=== PATIENT | male | born 1985 | race Caucasian/White ===

== ENCOUNTER 2016-05-30 19:49 | Emergency (ER) | payer OTHER ==
[~2016-05-30] VITALS: Ht 185.4 cm; Wt 127.0 kg
[2016-05-30] MEDS ORDERED: AMOX500C2 PO (20:00)
[2016-05-30] MEDS ORDERED: LISI1TAB6 PO (20:00)
[2016-05-30] MEDS ORDERED: NS IV 1000 ML 1,000 ML IV ONE (20:02)
--- NOTE | 2016-05-30 20:12 | ED General ---
General Chief Complaint: Cough/Cold/Flu Symptoms Stated Complaint: COUGH;HEAD AND NECK PAIN Nursing Triage Note: PT HAS BEEN TREATED FOR UPPER RESP INFECTION ET INNER EAR INFECTION WITH COUGH SYRUP ET ABX THROUGH URGENT CARE. REPORTS HE BEGAN HAVING SHARP HEAD PAIN WITH COUGH ABOUT 1 HR MALT [employer]. Nursing Sepsis Screen: No Definite Risk Source of Information: Patient, Family Exam Limitations: No Limitations History of Present Illness Time Seen by Provider: 19:53 Initial Comments This 31-year-old gentleman presents to emergency room with complaints of cough and pain in the left ear and the left neck with cough. The pain started about 10 minutes ago. The cough has been persistent for about a week. At onset of illness he presented to Urgent Care where he was prescribed an antibiotic and cough medication. He reports being diagnosed with right otitis media as well. He has one day left on the antibiotic and has finished the cough medication. He denies any fever. He is not a smoker. He is noted to be tachycardic and hypertensive on arrival. reports she gave him ibuprofen 200 mg prior to departing home. Allergies and Home Medications Allergies Coded Allergies: No Known Drug Allergies (Unverified , 05/30/16) Home Medications Amoxicillin 500 Mg Capsule #30 500 MG PO TID (Reported) Lisinopril/Hydrochlorothiazide 1 Each Tablet #30 1 TAB PO DAILY (Reported) Constitutional: no symptoms reported EENTM: see HPI Respiratory: see HPI Cardiovascular: see HPI Gastrointestinal: no symptoms reported Genitourinary: no symptoms reported Musculoskeletal: no symptoms reported Skin: no symptoms reported Psychiatric/Neurological: No Symptoms Reported Hematologic/Lymphatic: No Symptoms Reported Past Hsjosbu-Hvzwqy-Iitepe Hx Patient Social History Alcohol Use: Rarely Uses Recreational Drug Use: No Smoking Status: Never a Smoker Recent Foreign Travel: No Contact w/Someone Who Travel: No Recent Infectious Disease Expo: No Recent Hopitalizations: No Physical Abuse Screen: No Sexual Abuse: No Seasonal Allergies Seasonal Allergies: No Surgeries HX Surgeries: Yes (GANGLION CYST REMOVAL) Surgeries: Orthopedic Respiratory Hx Respiratory Disorders: No Cardiovascular Hx Cardiac Disorders: Yes Cardiac Disorders: Hypertension Neurological Hx Neurological Disorders: No Genitourinary Hx Genitourinary Disorders: No Gastrointestinal Hx Gastrointestinal Disorders: No Musculoskeletal Hx Musculoskeletal Disorders: No Endocrine Hx Endocrine Disorders: No HEENT HX ENT Disorders: No Cancer Hx Cancer: No Psychosocial Hx Psychiatric Problems: No Family Medical History Significant Family History: Cancer (colon cancer) Physical Exam Vital Signs Vital Sign - Last 12Hours 05/30/16 19:55 Temp 98.6 Pulse 106 Resp 18 O2 Delivery Room Air Capillary Refill : Less Than 3 Seconds General Appearance: No Apparent Distress WD/WN Other (coughing intermittently) HEENT: PERRL/EOMI TMs Normal Normal ENT Inspection Other (mild erythema and cobblestoning in the posterior pharynx. Mild tenderness in the temporal region and behind the left ear. No lymphadenopathy noted. 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 Norm as Tested Skin: Normal Color Warm/Dry Progress/Results/Core Measures Results/Orders Lab Results Laboratory Tests Test 05/30/16 20:10 Range/Units Anion Gap 12 5-14 MMOL/L BUN/Creatinine Ratio 18 Basophils # (Auto) 0.0 0.0-0.1 10^3/uL Basophils (%) (Auto) 0 0-10 % Blood Urea Nitrogen 17 7-18 MG/DL C-Reactive Protein High Sensitivity 1.15 H 0.00-0.50 MG/DL Calcium Level 9.5 8.5-10.1 MG/DL Carbon Dioxide Level 25 21-32 MMOL/L Chloride Level 102 98-107 MMOL/L Creatinine 0.93 0.60-1.30 MG/DL Eosinophils # (Auto) 0.3 0.0-0.3 10^3/uL Eosinophils (%) (Auto) 3 0-10 % Estimat Glomerular Filtration Rate > 60 Glucose Level 106 H 70-105 MG/DL Hematocrit 47 40-54 % Hemoglobin 16.3 13.3-17.7 G/DL Lymphocytes # (Auto) 2.0 1.0-4.0 X 10^3 Lymphocytes (%) (Auto) 20 12-44 % Mean Corpuscular Hemoglobin 30 25-34 PG Mean Corpuscular Hemoglobin Concent 35 32-36 G/DL Mean Corpuscular Volume 85 80-99 FL Mean Platelet Volume 10.5 H 7.4-10.4 FL Monocytes # (Auto) 1.1 H 0.0-1.0 X 10^3 Monocytes (%) (Auto) 11 0-12 % Neutrophils # (Auto) 6.7 1.8-7.8 X 10^3 Neutrophils (%) (Auto) 66 42-75 % Platelet Count 198 130-400 10^3/uL Potassium Level 3.6 3.6-5.0 MMOL/L Red Blood Count 5.53 4.35-5.85 10^6/uL Red Cell Distribution Width 13.4 10.0-14.5 % Sodium Level 139 135-145 MMOL/L White Blood Count 10.1 4.3-11.0 10^3/uL My Orders Orders-MISAEL LAKE MD Basic Metabolic Panel (05/30/16 20:02) Cbc With Automated Diff (05/30/16 20:02) Saline Lock/Iv-Start (05/30/16 20:02) Ns Iv 1000 Ml (Sodium Chloride 0.9%) (05/30/16 20:02) Hs C Reactive Protein (05/30/16 20:02) Chest Pa/Lat (2 View) (05/30/16 20:02) Ketorolac Injection (Toradol Injection) (05/30/16 20:15) Prednisone Tablet (Deltasone Tablet) (05/30/16 21:00) Benzonatate Capsule (Tessalon Perles) (05/30/16 21:00) Albuterol/Ipra Inhalation Soln (Duoneb I (05/30/16 21:00) Rx-Albuterol Inhaler (Rx-Ventolin Hfa) (05/30/16 20:56) Rt Request For Service (05/30/16 20:56) Medications Given in ED Current Medications Medications Dose Ordered Sig/Julieta Route Start Time Stop Time Status Last Admin Dose Admin Ketorolac Tromethamine 30 mg ONCE ONCE IVP 05/30/16 20:15 05/30/16 20:16 DC 05/30/16 20:16 30 MG Sodium Chloride 1,000 ml @ 0 mls/hr Q0M ONCE IV 05/30/16 20:02 05/30/16 20:03 DC 05/30/16 20:16 1,000 MLS/HR Vital Signs/I&O Vital Sign - Last 12Hours 05/30/16 05/30/16 19:55 20:13 Temp 98.6 Pulse 106 Resp 18 B/P O2 Delivery Room Air Room Air Progress Note #1: Time: 20:11 Progress Note Patient's tachycardia without fever was somewhat concerning. Labs were drawn and chest x-ray ordered. IV fluids will be administered. Progress Note #2: Time: 20:49 Progress Note Patient's heart rate is improving with IV fluids. There is no leukocytosis, elevation in CRP, or fever. This suggests no significant bacterial infection. DuoNeb treatment will be administered for cough. Tessalon Perles and prednisone will also be administered. Diagnostic Imaging Diagonstic Imaging: Xray Plain Films/CT/US/NM/MRI: chest Comments Two-view chest x-ray viewed by me and report reviewed. See report below: NAME: MARK LIANG [facility] REC#: [id number] PT STATUS: REG ER : 1985 PHYSICIAN: MISAEL LAKE MD ADMIT DATE: 05/30/16/ER Signed Date of Exam:05/30/16 CHEST PA/LAT (2 VIEW) INDICATION: Cough COMPARISON: None FINDINGS: Two views of the chest are obtained. Heart size is normal. The pulmonary vessels appear unremarkable. There is no pneumothorax, mediastinal widening or pleural fluid demonstrated. The lungs are clear. The osseous structures appear unremarkable. IMPRESSION: Negative chest Dictated by: Dictated on workstation # [id number] Dict: 05/30/162015 Trans: 05/30/162025 SAMIR [id number] Interpreted by: LESA LAZARO DO Electronically signed by: LESA LAZARO DO 05/30/162028 Departure Impression Impression: Primary Impression: Bronchitis Additional Impression: Acute headache Qualified Code: R51 - Headache Disposition: 01 HOME, SELF-CARE Condition: Improved Departure-Patient Inst. Decision time for Depature: 20:45 Referrals: NO,LOCAL PHYSICIAN (PCP) Primary Care Physician Patient Instructions: Acute Bronchitis in Adults Add. Discharge Instructions: Complete your antibiotics as previously prescribed. Use the steroids (prednisone) as prescribed to help reduce wheezing and shortness of air. You may use Tessalon Perles as prescribed for cough suppression or an over-the- counter product containing dextromethorphan (DM). Use your inhaler as prescribed 1-4 puffs every 4 hours as needed for cough, wheezing, or shortness of air. Follow up with your primary care provider or return to the emergency room if not improving. You may take ibuprofen up to 800 mg every 8 hours as needed for pain. Add Tylenol up to 1000 mg every 6 hours as needed for additional pain relief. All discharge instructions reviewed with patient and/or family. Voiced understanding. Scripts Benzonatate 200 Mg [id number] Mg PO TID #15 CAP Prov:MISAEL LAKE MD 05/30/16 Prednisone 20 Mg Tab20 Mg PO DAILY #3 TAB Prov:MISAEL LAKE MD 05/30/16 MISAEL LAKE MD May 30, 2016 20:12
[2016-05-30] MEDS ORDERED: KETOROLAC 30 MG/ML VIAL IVP ONE (20:15)
[2016-05-30 20:20] LABS: BASOPHILS % (AUTO) 0 % (0-10); EOSINOPHILS # (AUTO) 0.3 10^3/uL (0.0-0.3); EOSINOPHILS % (AUTO) 3 % (0-10); LYMPHOCYTES % (AUTO) 20 % (12-44); MEAN CORPUSCULAR HEMOGLOBIN 30 PG (25-34); MEAN CORPUSCULAR HGB CONC 35 G/DL (32-36); MEAN CORPUSCULAR VOLUME 85 FL (80-99); MEAN PLATELET VOLUME 10.5 FL (7.4-10.4); MONOCYTES # (AUTO) 1.1 X 10^3 (0.0-1.0); MONOCYTES % (AUTO) 11 % (0-12); NEUTROPHILS # (AUTO) 6.7 X 10^3 (1.8-7.8); NEUTROPHILS % (AUTO) 66 % (42-75); PLATELET COUNT 198 10^3/uL (130-400); RED BLOOD COUNT 5.53 10^6/uL (4.35-5.85); RED CELL DISTRIBUTION WIDTH 13.4 % (10.0-14.5); WHITE BLOOD COUNT 10.1 10^3/uL (4.3-11.0)
--- NOTE | 2016-05-30 20:25 | Diagnostic Imaging Report ---
INDICATION: Cough COMPARISON: None FINDINGS: Two views of the chest are obtained. Heart size is normal. The pulmonary vessels appear unremarkable. There is no pneumothorax, mediastinal widening or pleural fluid demonstrated. The lungs are clear. The osseous structures appear unremarkable. IMPRESSION: Negative chest Dictated by: Dictated on workstation # [id number]
[2016-05-30 20:42] LABS: ANION GAP 12 MMOL/L (5-14); BLOOD UREA NITROGEN 17 MG/DL (7-18); BUN/CREATININE RATIO 18; CALCIUM 9.5 MG/DL (8.5-10.1); CARBON DIOXIDE 25 MMOL/L (21-32); CHLORIDE 102 MMOL/L (98-107); CREATININE SERUM 0.93 MG/DL (0.60-1.30); GFR ESTIMATED > 60; GLUCOSE 106 MG/DL (70-105); POTASSIUM 3.6 MMOL/L (3.6-5.0); SODIUM 139 MMOL/L (135-145); hs C REACTIVE PROTEIN 1.15 MG/DL (0.00-0.50)
[2016-05-30] MEDS ORDERED: RX-ALBUTEROL INHALER (VENTOLIN HFA) 18 GM IH STA (20:56)
[2016-05-30] MEDS ORDERED: predniSONE 20 MG TAB PO ONE (21:00)
[2016-05-30] MEDS ORDERED: RT-ALBUTEROL/IPRATROPIUM 3 ML (DUONEB) VIAL INH ONE (21:00)
[2016-05-30] MEDS ORDERED: BENZONATATE 100 MG (TESSALON) CAPSULE PO ONE (21:00)
[2016-05-30] MEDS ORDERED: BENZ200C51 PO (21:08)
[2016-05-30] MEDS ORDERED: PRD20T PO (21:08)
[2016-05-30 21:19] VITALS: BP 132/83
== END 2016-05-30 21:19 | disposition home or self-care (01) ==
LOC: ER 19:52
DX: J20.9 Acute bronchitis, unspecified (principal); R51 Headache; R00.0 Tachycardia, unspecified; H92.02 Otalgia, left ear
CPT/HCPCS: 36415; 71020; 80048; 85025; 86141; 94640; 96361; 96374

== ENCOUNTER 2017-11-28 21:46 | Emergency (ER) | payer OTHER ==
[~2017-11-28] VITALS: Ht 185.4 cm; Wt 127.0 kg
[~2017-11-28 21:46] MED LIST: AMOX500C2 PO; BENZ200C51 PO; LISI1TAB6 PO; PRD20T PO
--- NOTE | 2017-11-28 21:56 | ED Integumentary General ---
General Stated Complaint: WASP STING, SWELLING, DIZZY, REDNESS, HOT Source: patient Exam Limitations: no limitations History of Present Illness Date Seen by Provider: Nov 28, 2017 Time Seen by Provider: 21:52 Initial Comments tto ER with a wasp sting yesterday evening 24 hours ago. He did not see the wasp sting him, he had a sudden burning to the right anterior upper chest wall and then saw wasp flying around. He suspects it was that wasp stung him.He applied some bag balm with some minor relief last night. Starting at 9:30 this evening, 20 minutes ago,he developed dizziness and increased pain at the sting site. No nausea no vomiting, no abdominal cramping. No rational hives no shortness of breath or trouble breathing. hat his dizziness comes about with movement and resolves with holding still. Timing/Duration: yesterday, getting worse Severity: moderate Allergies and Home Medications Allergies Coded Allergies: No Known Drug Allergies (Unverified , 05/30/16) Home Medications Amoxicillin 500 Mg Capsule, 500 MG PO TID, (Reported) Benzonatate 200 Mg Capsule, 200 MG PO TID Prescribed by: MISAEL BERRY on 05/30/162107 Lisinopril/Hydrochlorothiazide 1 Each Tablet, 1 TAB PO DAILY, (Reported) Prednisone 20 Mg Tab, 20 MG PO DAILY Prescribed by: MISAEL BERRY on 05/30/162107 Patient Home Medication List Home Medication List Reviewed: Yes Constitutional: see HPI EENTM: see HPI Respiratory: no symptoms reported Cardiovascular: no symptoms reported Genitourinary: no symptoms reported Musculoskeletal: no symptoms reported Skin: see HPI Psychiatric/Neurological: No Symptoms Reported Endocrine: No Symptoms Reported Hematologic/Lymphatic: No Symptoms Reported Past Yviyyvl-Epnxvm-Edboqf Hx Patient Social History Recent Foreign Travel: No Contact w/Someone Who Travel: No Recent Hopitalizations: No Seasonal Allergies Seasonal Allergies: No Past Medical History Orthopedic Hypertension Family Medical History Cancer Physical Exam Vital Signs Vital Signs - First Documented 11/28/17 21:53 Temp 98.7 Pulse 99 Resp 14 B/P (MAP) 160/104 (122) O2 Delivery Room Air Capillary Refill : General Appearance: WD/WN, no apparent distress, other (e says he's been indoors all day so other pathology such as heat exhaustion would be unlikely) HEENT: PERRL/EOMI, normal ENT inspection, TMs normal, pharynx normal Neck: non-tender, full range of motion Cardiovascular: regular rate, rhythm, no murmur Respiratory: normal breath sounds, no respiratory distress, no accessory muscle use Gastrointestinal: normal bowel sounds, non tender, soft Neurologic/Psychiatric: alert, normal mood/affect, oriented x 3 Skin: normal color, warm/dry, other (here is a single 4 mm vesiclefilled with serous fluidatop an erythematous base to the right anterior upperlateral chest wall. There is about 1-2 cm of surrounding erythema.) Skin Problem Character: erythema Progress/Results/Core Measures Results/Orders Lab Results Laboratory Tests Test 11/28/17 22:35 Range/Units My Orders Orders - RAND GONZALEZ APRN Diphenhydramine Tablet (Benadryl Tablet) (11/28/17 22:00) Cbc With Automated Diff (11/28/17 22:33) Basic Metabolic Panel (11/28/17 22:33) Meclizine Tablet (Antivert Tablet) (11/28/17 22:45) Medications Given in ED Current Medications Medications Dose Ordered Sig/Julieta Route Start Time Stop Time Status Last Admin Dose Admin Diphenhydramine HCl 25 mg ONCE ONCE PO 11/28/17 22:00 11/28/17 22:01 DC 11/28/17 22:06 25 MG Vital Signs/I&O 11/28/17 21:53 Temp 98.7 Pulse 99 Resp 14 B/P (MAP) 160/104 (122) O2 Delivery Room Air Departure Impression Primary Impression: Insect sting Additional Impression: Vertigo Disposition: 01 HOME, SELF-CARE Condition: Stable Departure-Patient Inst. Decision time for Depature: 21:55 Referrals: MAVIS HASSAN MD (PCP/Family) Primary Care Physician Patient Instructions: Insect Bites and Stings (DC) Add. Discharge Instructions: 1. Follow-up with your doctor next week for recheck. Return to ER for any trouble breathing, hives, worsening symptoms. Otherwise you can apply topical steroids such as cortisone 10 which you can purchase [id number] twice daily for the next 2-3 days. You can also use Benadryl one tablet every 4-6 hours as needed for any itching or other concerns. Cool compresses to this area may also help Scripts Meclizine HCl (Meclizine HCl) 25 Mg Tablet 25 MG PO Q8H PRN for DIZZINESS, #10 TAB Prov: RAND GONZALEZ APRN 11/28/17 RAND GONZALEZ APRN Nov 28, 2017 21:56
[2017-11-28] MEDS ORDERED: diphenhydrAMINE 25 MG TAB (BENADRYL) PO ONE (22:00)
[2017-11-28 22:41] LABS: BASOPHILS % (AUTO) 0 % (0-10); EOSINOPHILS # (AUTO) 0.1 10^3/uL (0.0-0.3); EOSINOPHILS % (AUTO) 2 % (0-10); HEMATOCRIT 45 % (40-54); HEMOGLOBIN 15.8 G/DL (13.3-17.7); LYMPHOCYTES # (AUTO) 2.9 X 10^3 (1.0-4.0); LYMPHOCYTES % (AUTO) 36 % (12-44); MEAN CORPUSCULAR HEMOGLOBIN 30 PG (25-34); MEAN CORPUSCULAR HGB CONC 35 G/DL (32-36); MEAN CORPUSCULAR VOLUME 84 FL (80-99); MEAN PLATELET VOLUME 10.5 FL (7.4-10.4); MONOCYTES # (AUTO) 0.7 X 10^3 (0.0-1.0); MONOCYTES % (AUTO) 9 % (0-12); NEUTROPHILS # (AUTO) 4.3 X 10^3 (1.8-7.8); NEUTROPHILS % (AUTO) 54 % (42-75); PLATELET COUNT 211 10^3/uL (130-400); RED BLOOD COUNT 5.35 10^6/uL (4.35-5.85); RED CELL DISTRIBUTION WIDTH 13.8 % (10.0-14.5)
[2017-11-28] MEDS ORDERED: MECL-106 PO (22:42)
[2017-11-28] MEDS ORDERED: MECLIZINE 25 MG (ANTIVERT) TAB PO ONE (22:45)
[2017-11-28 23:01] LABS: BUN/CREATININE RATIO 21; CALCIUM 9.1 MG/DL (8.5-10.1); CARBON DIOXIDE 20 MMOL/L (21-32); CHLORIDE 111 MMOL/L (98-107); CREATININE SERUM 0.81 MG/DL (0.60-1.30); GFR ESTIMATED > 60; GLUCOSE 114 MG/DL (70-105); POTASSIUM 3.9 MMOL/L (3.6-5.0); SODIUM 140 MMOL/L (135-145)
[2017-11-28 23:07] VITALS: BP 142/96
== END 2017-11-28 23:09 | disposition home or self-care (01) ==
LOC: EDUNIT# 21:46 → ER 21:48
DX: S20.361A Insect bite (nonvenomous) of right front wall of thorax, initial encounter (principal); R42 Dizziness and giddiness; I10 Essential (primary) hypertension; Z98.890 Other specified postprocedural states; Z79.52 Long term (current) use of systemic steroids; W57.XXXA Bitten or stung by nonvenomous insect and other nonvenomous arthropods, initial encounter
CPT/HCPCS: 36415; 80048; 85025; 99283

== ENCOUNTER → 2020-11-14 | Outpatient (CLI) | payer OTHER ==
[~2020-11-14] MED LIST changes: +LISI1TAB29 PO; -LISI1TAB6 PO; +MECL-149 PO
[2020-11-14 16:16] LABS: ALBUMIN 4.5 GM/DL (3.2-4.5)
[2020-11-14 16:17] LABS: CHLORIDE 106 MMOL/L (98-107); POTASSIUM 3.4 MMOL/L (3.6-5.0); SODIUM 142 MMOL/L (135-145)
[2020-11-14 16:18] LABS: CALCIUM 9.1 MG/DL (8.5-10.1)
[2020-11-14 16:19] LABS: GLUCOSE 90 MG/DL (70-105); TOTAL PROTEIN 8.1 GM/DL (6.4-8.2)
[2020-11-14 16:20] LABS: CARBON DIOXIDE 24 MMOL/L (21-32)
[2020-11-14 16:21] LABS: BILIRUBIN,TOTAL 0.7 MG/DL (0.1-1.0)
[2020-11-14 16:22] LABS: ALKALINE PHOSPHATASE 80 U/L (40-136)
[2020-11-14 16:23] LABS: CREATININE SERUM 0.88 MG/DL (0.60-1.30); GFR ESTIMATED > 60
[2020-11-14 16:24] LABS: BUN/CREATININE RATIO 13
[2020-11-14 16:26] LABS: ALANINE AMINOTRANSFERASE 50 U/L (0-55)
== END ==
LOC: CARD 15:35
PROVIDERS: ATTEND Family Medicine
DX: R07.89 Other chest pain (principal); R53.83 Other fatigue
CPT/HCPCS: 36415; 80053; 84484; 93005

== ENCOUNTER 2020-11-18 08:04 | Outpatient (RCR) | payer OTHER | END 2021-02-14 | disposition home or self-care (01) | LOC: LAB 08:04 | PROVIDERS: ATTEND Family Medicine | DX: R77.8 Other specified abnormalities of plasma proteins (principal) | CPT/HCPCS: 36415; 84484 ==

== ENCOUNTER → 2022-06-29 | Outpatient (CLI) | payer OTHER ==
[~2022-06-29] MED LIST changes: -LISI1TAB29 PO; +LISI1TAB44 PO
--- NOTE | 2022-06-29 16:48 | Diagnostic Imaging Report ---
EXAMINATION: Left hip radiographs, 2 views. COMPARISON: None. HISTORY: 37-year-old male, left hip pain. FINDINGS: Left hip is not dislocated. There is no joint space loss of the left hip, osteophyte formation, or subchondral cystic change. There is no identified acute fracture. IMPRESSION: 1. Unremarkable radiographs of the left hip. Dictated by: Dictated on workstation # [id number]
== END ==
LOC: RAD 14:37
PROVIDERS: ATTEND Family Medicine
DX: M25.552 Pain in left hip (principal)
CPT/HCPCS: 73502